=== PATIENT | female | born 1995 | race Caucasian/White ===

== ENCOUNTER 2017-03-15 18:28 | Emergency (ER) | payer MEDICAID ==
[~2017-03-15] VITALS: Ht 167.6 cm; Wt 97.0 kg
[2017-03-15 18:48] VITALS: Ht 167.6 cm; Wt 97.0 kg
[2017-03-15] MEDS ORDERED: IBUPROFEN 800 MG TAB PO ONE (20:00)
--- NOTE | 2017-03-15 20:00 | ERD ---
ER Documentation Chief Complaint Date/Time DATE: 03/15/17 TIME: 19:59 Chief Complaint sore throat x 2 days HPI This is a 26-year-old female presents to the emergency room for evaluation of sore throat and fever for the past 2 days. The patient states that she has body aches, and a sore throat. Denies any cough. The patient came to the ER for evaluation. She is denying any difficulty swallowing, and has no chest pain , palpitations or shortness of breath ROS All systems reviewed and are negative except as per history of present illness. Allergies Allergies: Coded Allergies: No Known Drug Allergies (Verified Allergy, Unknown, 03/15/17) Physical Exam Vitals Vital Signs Date Time Temp Pulse Resp B/P Pulse Ox O2 Delivery O2 Flow Rate FiO2 03/15/17 18:48 100.6 92 20 144/94 5 Physical Exam Const: No acute distress Head: Atraumatic Eyes: Normal Conjunctiva ENT: Pharyngeal erythema with white visible exudate noted on the bilateral tonsils normal External Ears, Nose and Mouth. Neck: Full range of motion..~ No meningismus. Resp: Clear to auscultation bilaterally Cardio: Regular rate and rhythm, no murmurs Abd: Soft, non tender, non distended. Normal bowel sounds Skin: No petechiae or rashes Back: No midline or flank tenderness Ext: No cyanosis, or edema Neur: Awake and alert Psych: Normal Mood and Affect Procedures/MDM This 26-year-old female presents to the ER for evaluation of fever and sore throat. This patient was febrile in the emergency room. She did have Motrin given to her, does have what appears to be acute strep pharyngitis on my examination. This patient will be discharged home with a prescription for Motrin, and amoxicillin at this time. No signs of systemic infection at this time, she is hemodynamically stable and nontoxic appearing Departure Diagnosis: Primary Impression: Acute streptococcal pharyngitis Condition: Stable MICHAEL NARAYANAN DO Mar 15, 2017 20:00
[2017-03-15] MEDS ORDERED: IBUP800T25 PO (20:01)
[2017-03-15] MEDS ORDERED: AMO500 PO (20:01)
== END 2017-03-15 20:24 | disposition home or self-care (01) ==
LOC: E/R 18:28
DX: J02.0 Streptococcal pharyngitis (principal)
CPT/HCPCS: Z7502; Z7610; 99283